=== PATIENT | female | born 1980 | race American Indian/Alaskan Native ===

== ENCOUNTER 2020-10-29 18:12 | Emergency (ER) | payer BC ==
--- NOTE | 2020-10-29 20:49 | Emergency Department Report ---
ED Headache HPI - General Chief Complaint: Headache Stated Complaint: FLUCTUATING BS/VOMITING/HEADACHE Time Seen by Provider: 10/29/20 20:28 Source: patient Exam Limitations: no limitations - History of Present Illness Initial Comments: 40-year-old female, history of diabetes, asthma, presents to the ED with complaint of headache. Patient states for the last 3 weeks, she has been having occasional mild headaches. Patient attributed these headaches to a recent increase in her diabetes medications, Ozempic and insulin. Patient states she has changed her diet over the last 3 weeks and blood glucose has been more controlled. Patient states last night, she went to a birthday democrat. States she only has a small amount to eat, however after eating a piece of birthday cake, 15 minutes later she had sudden onset of headache. Patient states headache is located on the right side and her right eye. She reports associated nausea and vomiting. She denies any dizziness, fever, neck pain, numbness or weakness. Patient states pain is worse with bright light. Patient denies any history of migraine headaches. Patient reports no relief with Excedrin Migraine medication. Timing/Duration: other (since 10 PM last night) Quality: severe Recent Head Trauma: occasional headaches Modifying Factors: worse with: exposure to light Associated Symptoms: nausea/vomiting. denies: facial pain, fever/chills, seizures, sinus infection, stiff neck, vision changes, weakness Home Medications: Ambulatory Orders Butalb/Acetamin/Caff 50-325-40 [Fioricet] 1 tab PO Q6HR PRN #10 tab 10/30/20 Naproxen [Naprosyn] 500 mg PO BID #20 tablet 10/30/20 ED Review of Systems ROS: Stated complaint: FLUCTUATING BS/VOMITING/HEADACHE Other details as noted in HPI Comment: All other systems reviewed and negative Constitutional: denies: chills, fever Gastrointestinal: nausea, vomiting Neurological: headache. denies: weakness, numbness, abnormal gait, vertigo ED Past Medical Hx - Past Medical History Hx Diabetes: Yes Hx Asthma: Yes - Surgical History Additional Surgical History: ovary removed - Social History Smoking Status: Never Smoker - Medications Home Medications: Home Medications Medication Instructions Recorded Confirmed Last Taken Type Butalb/Acetamin/Caff 50-325-40 1 tab PO Q6HR PRN #10 tab 10/30/20 Unknown Rx [Fioricet] Naproxen [Naprosyn] 500 mg PO BID #20 tablet 10/30/20 Unknown Rx ED Physical Exam - General Limitations: No Limitations General appearance: alert, other (appears uncomfortable) - Head Head exam: Present: atraumatic - Eye Eye exam: Present: normal appearance, PERRL, EOMI Pupils: Present: normal accommodation - ENT ENT exam: Present: mucous membranes moist - Neck Neck exam: Present: normal inspection, full ROM. Absent: meningismus - Respiratory Respiratory exam: Present: normal lung sounds bilaterally. Absent: respiratory distress - Cardiovascular Cardiovascular Exam: Present: normal rhythm, tachycardia - GI/Abdominal GI/Abdominal exam: Present: soft. Absent: distended, tenderness - Extremities Exam Extremities exam: Present: normal inspection - Neurological Exam Neurological exam: Present: alert, oriented X3, CN II-XII intact, normal gait, other (skieey-ef-ajey intact bilaterally). Absent: motor sensory deficit - Psychiatric Psychiatric exam: Present: normal affect, normal mood - Skin Skin exam: Present: warm, dry, intact, normal color ED Course Vital Signs 10/29/20 10/29/20 10/29/20 19:29 21:04 21:16 Temperature 98.8 F Pulse Rate 120 H 81 Respiratory 20 13 10 L Rate Blood Pressure 166/108 132/59 O2 Sat by Pulse 100 100 Oximetry 10/29/20 10/29/20 10/29/20 21:30 21:46 22:00 Temperature Pulse Rate 87 88 Respiratory 11 L 13 16 Rate Blood Pressure 125/57 123/84 123/84 O2 Sat by Pulse 100 100 100 Oximetry 10/29/20 10/29/20 10/29/20 22:16 22:30 22:38 Temperature Pulse Rate Respiratory 16 22 17 Rate Blood Pressure 125/78 128/92 128/92 O2 Sat by Pulse 100 100 99 Oximetry 10/29/20 10/29/20 10/29/20 22:46 23:00 23:16 Temperature Pulse Rate 85 91 H 87 Respiratory 16 15 20 Rate Blood Pressure 128/92 128/92 128/92 O2 Sat by Pulse 100 100 100 Oximetry 10/29/20 10/29/20 10/30/20 23:30 23:46 00:00 Temperature Pulse Rate 85 88 83 Respiratory 16 17 17 Rate Blood Pressure 128/92 128/92 128/92 O2 Sat by Pulse 100 99 100 Oximetry 10/30/20 10/30/20 10/30/20 00:16 00:30 00:46 Temperature Pulse Rate 85 83 86 Respiratory 18 17 21 Rate Blood Pressure 128/92 111/46 118/49 O2 Sat by Pulse 99 99 97 Oximetry 10/30/20 10/30/20 10/30/20 01:00 01:16 01:30 Temperature Pulse Rate 83 87 93 H Respiratory 19 16 19 Rate Blood Pressure 105/56 95/51 114/55 O2 Sat by Pulse 99 97 98 Oximetry 10/30/20 10/30/20 01:46 02:00 Temperature Pulse Rate 88 83 Respiratory 21 22 Rate Blood Pressure 117/50 104/62 O2 Sat by Pulse 99 100 Oximetry - Reevaluation(s) Reevaluation #1: 10/29/20 22:46 Pt states ALEXANDER has just about completely resolved. SPoke with pt regarding need to perform LP due to sudden nature of her ALEXANDER. Pt agrees. States her father of a heart attack and an aneurysm. When asked if it was a brain aneurysm or aneurysm in the chest or abdomen, pt states she is unsure. Reevaluation #2: 10/30/20 01:46 Pt sleeping comfortably. Easily aroused. Reports resolution of ALEXANDER. Feels comfortable for d/c home. - Lumbar Puncture Consent Obtained: written consent Time Out Performed: Yes Indication for Procedure: headache Patient Position: Sitting Upright/Leaning F Skin Prep: Povidone-Iodine 1% Local Anesthetic Used: Lidocaine 1% Amount of anesthesia used (mls): 3 Spinal Needle Gauge: 22G Interspace Used: L4-L5 Fluid Initially Obtained: clear Complications: none Patient Tolerated Procedure: well ED Medical Decision Making - Lab Data Result diagrams: 10/29/20 20:46 10/29/20 20:46 - Radiology Data Radiology results: report reviewed, image reviewed - Medical Decision Making 40-year-old female presents to ED with acute right-sided headache. CT head negative for any acute bleed. No neuro deficits on exam. Due to nature of onset of headache, I decided to perform an LP to rule out subarachnoid hemorrhage. LP results did not show evidence of SAH. Patient has 2 RBCs in tube 1 and 3 RBCs in tube 4. Also no evidence of infection. Patient was given IV fluids, Toradol, Reglan, and Benadryl. Patient reports resolution of her headache. Patient feels comfortable with discharge home. Will discharge with prescriptions. Outpatient follow-up with neurologist as advised. Return precautions given. - Differential Diagnosis Migraine headache, subarachnoid hemorrhage, ICH Critical care attestation.: If time is entered above; I have spent that time in minutes in the direct care of this critically ill patient, excluding procedure time. ED Disposition Clinical Impression: Acute headache Disposition: - TO HOME OR SELFCARE Is pt being admited?: No Condition: Stable Instructions: General Headache Without Cause, [id number] Prescriptions: Butalb/Acetamin/Caff 50-325-40 [Fioricet] 1 tab PO Q6HR PRN #10 tab PRN Reason: Headache Naproxen [Naprosyn] 500 mg PO BID #20 tablet Referrals: PRIMARY CARE, [Primary Care Provider] - 3-5 Days JAMES ORELLANA MD [Referring] - [facility] Time of Disposition: 01:46
[2020-10-29] MEDS ORDERED: diphenhydrAMINE 50 MG/ML VIAL IV ONE (21:06)
[2020-10-29] MEDS ORDERED: SODIUM CHLORIDE 0.9% 1000 ML 1,000 ML IV ONE (21:06)
[2020-10-29] MEDS ORDERED: METOCLOPRAMIDE 10 MG/2 ML INJ IV ONE (21:06)
[2020-10-29] MEDS ORDERED: KETOROLAC 30 MG/1 ML INJ IV ONE (21:06)
[2020-10-29 21:08] LABS: Basophils % (Auto) 0.6 % (0.0-1.8); Eosinophils # (Auto) 0.1 K/mm3 (0.0-0.4); Eosinophils % (Auto) 2.1 % (0.0-4.3); Mean Corpuscular HGB Conc 31 % (30-34); Monocytes # (Auto) 0.4 K/mm3 (0.0-0.8); Monocytes % (Auto) 6.9 % (0.0-7.3); Platelet Count 367 K/mm3 (140-440); Red Blood Count 5.24 M/mm3 (3.65-5.03); Red Cell Distribution Width 19.7 % (13.2-15.2)
[2020-10-29 21:10] LABS: Mean Corpuscular Volume 67 fl (79-97)
[2020-10-29 21:21] LABS: Alanine Aminotransferase 12 units/L (7-56); Albumin 3.5 g/dL (3.9-5); Blood Urea Nitrogen 11 mg/dL (7-17); Calcium 9.1 mg/dL (8.4-10.2); Hemolysis Index 3
[2020-10-29 21:22] LABS: BUN/Creatinine Ratio 18; Bilirubin,Direct < 0.2 mg/dL (0-0.2)
[2020-10-29 21:23] LABS: Partial Thromboplastin Time 27.3 Sec. (24.2-36.6)
--- NOTE | 2020-10-29 21:24 | Cat Scan Report ---
CT HEAD WITHOUT CONTRAST INDICATION / CLINICAL INFORMATION: headache. TECHNIQUE: All CT scans at this location are performed using CT dose reduction for ALARA by means of automated e xposure control. COMPARISON: None available. FINDINGS: HEMORRHAGE: None. EXTRA-AXIAL SPACES: Normal in size and morphology for the patient's age. VENTRICULAR SYSTEM: Normal in size and morphology for the patient's age. CEREBRAL PARENCHYMA: No significant abnormality. No acute territorial infarct. MIDLINE SHIFT OR HERNIATION: None. CEREBELLUM / BRAINSTEM: No significant abnormality. ORBITS: Normal as visualized. SOFT TISSUES of HEAD: No significant abnormality. CALVARIUM: No significant abnormality. PARANASAL SINUSES / MASTOID AIR CELLS: Normal as visualized. ADDITIONAL FINDINGS: None. IMPRESSION: 1. No acute intracranial abnormality. Signer Name: Wilfredo Varghese MD Signed: 10/29/2020 9:20 PM Workstation Name: [id number]
[2020-10-30 00:10] LABS: Glucose,CSF 84 mg/dL
[2020-10-30 01:14] LABS: Appearance,CSF Clear
[2020-10-30 01:21] LABS: Total Cells Counted 100 /mm3
[2020-10-30 01:28] LABS: Red Blood Cell,CSF 3 /mm3 (0-0); White Blood Cell,CSF 14 /mm3 (1-10)
[2020-10-30 01:29] LABS: Appearance,CSF Clear
[2020-10-30 01:29] LABS: Basophils CSF 0 %
[2020-10-30 01:39] LABS: Basophils CSF 0 %; Red Blood Cell,CSF 2 /mm3 (0-0); Total Cells Counted 94 /mm3; White Blood Cell,CSF 8 /mm3 (1-10)
[2020-10-30 02:23] VITALS: BP 104/62
== END 2020-10-30 02:15 | disposition home or self-care (01) ==
LOC: ED 18:12
DX: R51.9 Headache, unspecified (principal); E11.9 Type 2 diabetes mellitus without complications; J45.909 Unspecified asthma, uncomplicated; Z79.899 Other long term (current) drug therapy
CPT/HCPCS: 36415; 62270; 70450; 80048; 80076; 82947; 84160; 84703; 85025; 85610; 85730; 87116; 89051; 96361; 96374; 96375; 99284; J1200; J1885; J2765; J7030

== ENCOUNTER 2020-12-03 10:25 | Emergency (ER) | payer BC ==
[2020-12-03 10:44] VITALS: BP 131/84
[2020-12-03] MEDS ORDERED: SODIUM CHLORIDE 0.9% 1000 ML 1,000 ML IV ONE (10:47)
[2020-12-03] MEDS ORDERED: ONDANSETRON 4 MG/2 ML INJ IV ONE (10:48)
[2020-12-03] MEDS ORDERED: FAMOTIDINE 20 MG TAB PO ONE (10:48)
--- NOTE | 2020-12-03 10:49 | Emergency Department Report ---
ED Abdominal Pain HPI - General Chief Complaint: Nausea/Vomiting/Diarrhea Stated Complaint: CHEST PAIN, ABD PAIN, BACK PAIN, VOMITING Time Seen by Provider: 12/03/20 10:47 Source: patient Mode of arrival: Ambulatory Limitations: No Limitations - History of Present Illness Initial Comments: 40-year-old female with a past medical history of diabetes presents to the ER today with complaints of epigastric pain. Patient states that her pain started last night. She states that the pain radiates up into her left chest and into her back. She reports multiple episodes of nausea and vomiting since last night. She states that emesis was initially food but now is bilious. She denies any associated diarrhea or any other bowel changes. She states that the pain started after eating a [place] cheese steak last night. She reports history of known gallstones. She states she was diagnosed with gallstones about 2 years ago and she did follow-up with a surgeon but she did not have it removed because she states that at a time she does not have any issues. She denies any associated fever or chills. She denies any shortness of breath cough or wheezing. She denies any UTI or abnormal vaginal symptoms. Her last menstrual cycle was around October 31. She not currently on any control. MD Complaint: abdominal pain -: Gradual (yesterday ) - Related Data Previous Rx's Medication Instructions Recorded Last Taken Type Butalb/Acetamin/Caff 50-325-40 1 tab PO Q6HR PRN #10 tab 10/30/20 Unknown Rx [Fioricet] Naproxen [Naprosyn] 500 mg PO BID #20 tablet 10/30/20 Unknown Rx Famotidine [Pepcid] 20 mg PO BID #60 tablet 12/03/20 Unknown Rx HYDROcodone/APAP 5-325 [[place] 1 each PO Q4HR PRN #10 tablet 12/03/20 Unknown Rx 5/325] Ondansetron [Zofran Odt] 4 mg PO Q8HR PRN #15 tab.rapdis 12/03/20 Unknown Rx Allergies Allergy/AdvReac Type Severity Reaction Status Date / Time No Known Allergies Allergy Unverified 12/03/20 10:41 ED Review of Systems ROS: Stated complaint: CHEST PAIN, ABD PAIN, BACK PAIN, VOMITING Other details as noted in HPI Comment: All other systems reviewed and negative Eyes: denies: eye pain, eye discharge, vision change ENT: denies: ear pain, throat pain, dental pain, hearing loss, epistaxis, congestion Respiratory: denies: cough, shortness of breath, SOB with exertion, SOB at rest, stridor, wheezing Cardiovascular: chest pain. denies: palpitations, dyspnea on exertion, edema, syncope, paroxysmal nocturnal dyspnea Gastrointestinal: abdominal pain, nausea, vomiting Musculoskeletal: back pain. denies: joint swelling, arthralgia, myalgia Skin: denies: rash, lesions, change in color, change in hair/nails, pruritus Neurological: denies: headache, weakness, paresthesias Psychiatric: denies: anxiety, depression, auditory hallucinations, visual hallucinations, homicidal thoughts, suicidal thoughts Hematological/Lymphatic: denies: easy bleeding, easy bruising, swollen glands ED Past Medical Hx - Past Medical History Previous Medical History?: Yes Hx Diabetes: Yes Hx Asthma: Yes - Surgical History Past Surgical History?: Yes Additional Surgical History: ovary removed - Social History Smoking Status: Never Smoker Substance Use Type: Alcohol, Prescribed - Medications Home Medications: Home Medications Medication Instructions Recorded Confirmed Last Taken Type Butalb/Acetamin/Caff 50-325-40 1 tab PO Q6HR PRN #10 tab 10/30/20 Unknown Rx [Fioricet] Naproxen [Naprosyn] 500 mg PO BID #20 tablet 10/30/20 Unknown Rx Famotidine [Pepcid] 20 mg PO BID #60 tablet 12/03/20 Unknown Rx HYDROcodone/APAP 5-325 [[place] 1 each PO Q4HR PRN #10 tablet 12/03/20 Unknown Rx 5/325] Ondansetron [Zofran Odt] 4 mg PO Q8HR PRN #15 tab.rapdis 12/03/20 Unknown Rx ED Physical Exam - General Limitations: No Limitations General appearance: alert, in distress, obese - Head Head exam: Present: atraumatic, normocephalic, normal inspection - Eye Eye exam: Present: normal appearance, PERRL, EOMI Pupils: Present: normal accommodation - ENT ENT exam: Present: normal exam, mucous membranes moist - Neck Neck exam: Present: normal inspection, full ROM - Respiratory Respiratory exam: Present: normal lung sounds bilaterally. Absent: respiratory distress, wheezes, rales, rhonchi, stridor - Cardiovascular Cardiovascular Exam: Present: regular rate, normal rhythm, normal heart sounds - GI/Abdominal GI/Abdominal exam: Present: soft, tenderness (Moderate epigastric, mild upper quadrant with some mild guarding). Absent: rebound, rigid - Neurological Exam Neurological exam: Present: alert, oriented X3, CN II-XII intact, normal gait - Psychiatric Psychiatric exam: Present: normal affect, normal mood - Skin Skin exam: Present: intact ED Course Vital Signs 12/03/20 12/03/20 10:43 13:23 Temperature 99.0 F Pulse Rate 96 H Respiratory 20 20 Rate Blood Pressure 131/84 O2 Sat by Pulse 100 Oximetry ED Medical Decision Making - Lab Data Result diagrams: 12/03/20 11:41 12/03/20 11:41 - Radiology Data Radiology results: report reviewed Patient: LAUREN GOMEZ MR# : [id number] : 1980 Acct:[id number] Age/Sex: 40 / F ADM Date: 12/03/20 Loc: ED Attending Dr: Ordering Physician: LUKAS BLANKENSHIP Date of Service: 12/03/20 Procedure(s): XR chest routine 2V Accession Number(s): [id number] cc: LUKAS BLANKENSHIP Fluoro Time In Minutes: CHEST 2 VIEWS INDICATION / CLINICAL INFORMATION: Chest Pain/epigastric pain. COMPARISON: None available. FINDINGS: SUPPORT DEVICES: None. HEART / MEDIASTINUM: No significant abnormality. LUNGS / PLEURA: No significant pulmonary or pleural abnormality. No pneumothorax. ADDITIONAL FINDINGS: No significant additional findings. IMPRESSION: 1. No acute cardiopulmonary abnormality. Signer Name: Radha Varghese MD Signed: 12/03/2020 12:45 PM Workstation Name: [id number] Transcribed By: SS Dictated By: RADHA VARGHESE Electronically Authenticated By: RADHA VARGHESE Signed Date/Time: 12/03/20 124 DD/ 44 TD/TT: - Medical Decision Making Patient currently resting comfortable. Her pain has improved and she has not had any vomiting during stay after meds. She is nontoxic and not ill-appearing. Labs reviewed and shows elevated glucose of 212 otherwise unremarkable. Ultrasound shows cholelithiasis but otherwise no cholecystitis or any other acute abnormality. CT abdomen pelvis also shows cholecystitis but otherwise unremarkable. Discussed lab and CT results with patient. Recommend follow-up with a general surgeon to discuss having her gallbladder removed. Gallbladder eating plan given to her as part of her discharge instructions. She also be given medications for pain and nausea. Patient expressed understanding of instructions and agree with plan. Patient stable at time of discharge. Critical care attestation.: If time is entered above; I have spent that time in minutes in the direct care of this critically ill patient, excluding procedure time. ED Disposition Clinical Impression: Cholelithiasis, Atypical chest pain Disposition: - TO HOME OR SELFCARE Is pt being admited?: No Does the pt Need Aspirin: No Condition: Stable Instructions: Cholelithiasis, [id number], Nonspecific Chest Pain, Adult, Gallbladder Eating Plan Additional Instructions: Take the pepcid, the zofran and the norco as prescribed. It is important that you stay away from fried fatty greasy food and you can also follow the gallbladder eating plan on your discharge instructions. It is also important that you follow-up with the general surgeon for further evaluation and discussion about possible surgery for your gallbladder. Return to the ER if your symptoms changes or worsens in any way. Prescriptions: HYDROcodone/APAP 5-325 [[place] 5/325] 1 each PO Q4HR PRN #10 tablet PRN Reason: Pain Famotidine [Pepcid] 20 mg PO BID #60 tablet Ondansetron [Zofran Odt] 4 mg PO Q8HR PRN #15 tab.rapdis PRN Reason: nausea/vomiting [facility]Other[facility] - 3-5 Days ALISSA MINER MD [Staff Physician] - 3-5 Days Forms: Work/School Release Form(ED) Time of Disposition: 14:18
[2020-12-03 11:46] LABS: Bilirubin,Urine NEG (Negative); Blood,Urine NEG (Negative); Color,Urine Yellow (Yellow); Mucus,Urine FEW /HPF; Urobilinogen,Urine < 2.0 mg/dL (<2.0)
[2020-12-03 11:57] LABS: Basophils % (Auto) 0.3 % (0.0-1.8); Eosinophils # (Auto) 0.1 K/mm3 (0.0-0.4); Eosinophils % (Auto) 0.8 % (0.0-4.3); Hematocrit 34.6 % (30.3-42.9); Hemoglobin 11.3 gm/dl (10.1-14.3); Lymphocytes # (Auto) 1.5 K/mm3 (1.2-5.4); Lymphocytes % (Auto) 20.1 % (13.4-35.0); Mean Corpuscular HGB Conc 33 % (30-34); Monocytes # (Auto) 0.4 K/mm3 (0.0-0.8); Monocytes % (Auto) 5.4 % (0.0-7.3); Platelet Count 372 K/mm3 (140-440); Red Blood Count 5.33 M/mm3 (3.65-5.03); Red Cell Distribution Width 17.7 % (13.2-15.2)
[2020-12-03 12:09] LABS: Mean Corpuscular Volume 65 fl (79-97)
--- NOTE | 2020-12-03 12:18 | Ultrasound Report ---
ULTRASOUND ABDOMEN, LIMITED (RIGHT UPPER QUADRANT) INDICATION / CLINICAL INFORMATION: Epigastric pain. COMPARISON: None available. FINDINGS: PANCREAS: Visualized portion shows no significant abnormality. LIVER: No significant abnormality. GALLBLADDER: Multiple echogenic foci are seen within the gallbladder lumen. There is no gallbladder w all thickening or significant pericholecystic edema. BILE DUCTS: No significant abnormality. Common bile duct measures 4 mm. FREE FLUID: None. ADDITIONAL FINDINGS: None. IMPRESSION: 1. Uncomplicated cholelithiasis. Signer Name: Wilfredo Varghese MD Signed: 12/03/2020 12:14 PM Workstation Name: [id number]
[2020-12-03 12:30] LABS: Alanine Aminotransferase 10 units/L (7-56); Albumin 3.5 g/dL (3.9-5); Blood Urea Nitrogen 8 mg/dL (7-17); Calcium 9.3 mg/dL (8.4-10.2); Hemolysis Index 0
[2020-12-03] MEDS ORDERED: KETOROLAC 30 MG/1 ML INJ IV ONE (12:31)
[2020-12-03 12:38] LABS: BUN/Creatinine Ratio 16
--- NOTE | 2020-12-03 12:49 | XRay Report ---
CHEST 2 VIEWS INDICATION / CLINICAL INFORMATION: Chest Pain/epigastric pain. COMPARISON: None available. FINDINGS: SUPPORT DEVICES: None. HEART / MEDIASTINUM: No significant abnormality. LUNGS / PLEURA: No significant pulmonary or pleural abnormality. No pneumothorax. ADDITIONAL FINDINGS: No significant additional findings. IMPRESSION: 1. No acute cardiopulmonary abnormality. Signer Name: Wilfredo Varghese MD Signed: 12/03/2020 12:45 PM Workstation Name: [id number]
--- NOTE | 2020-12-03 14:13 | Cat Scan Report ---
CT ABDOMEN AND PELVIS WITH CONTRAST INDICATION / CLINICAL INFORMATION: Epigastric pain. TECHNIQUE: Axial CT images were obtained through the abdomen and pelvis following the administration of intraven ous contrast. All CT scans at this location are performed using CT dose reduction for ALARA by means of automated exposure control. COMPARISON: None available. FINDINGS: LOWER CHEST: No significant abnormality. LIVER: No significant abnormality. GALLBLADDER: Uncomplicated cholelithiasis. PANCREAS: No significant abnormality. SPLEEN: No significant abnormality. ADRENALS: No significant abnormality. KIDNEYS / URETERS: No significant abnormality. URINARY BLADDER: No significant abnormality. REPRODUCTIVE ORGANS: 2.3 cm involuting left ovarian cyst. STOMACH / SMALL BOWEL: No significant abnormality. COLON: No significant abnormality. APPENDIX: No significant abnormality. PERITONEUM: No free fluid. No free air. No fluid collection. LYMPH NODES: No significant adenopathy. AORTA / ARTERIES: No significant abnormality. IVC / VEINS: No significant abnormality. SKELETAL SYSTEM: No significant abnormality. ADDITIONAL FINDINGS: None. IMPRESSION: 1. No acute abdominopelvic abnormality. 2. Uncomplicated cholelithiasis. 3. 2.3 cm involuting left ovarian cyst. Signer Name: Wilfredo Varghese MD Signed: 12/03/2020 2:08 PM Workstation Name: [id number]
--- NOTE | 2020-12-05 10:28 | Electrocardiograph Report ---
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
== END 2020-12-03 14:56 | disposition home or self-care (01) ==
LOC: ED 10:25
DX: K80.20 Calculus of gallbladder without cholecystitis without obstruction (principal); R07.89 Other chest pain; E11.9 Type 2 diabetes mellitus without complications; J45.909 Unspecified asthma, uncomplicated; Z98.890 Other specified postprocedural states; Z79.899 Other long term (current) drug therapy
CPT/HCPCS: 36415; 71046; 74177; 76705; 80053; 81001; 83690; 83735; 84484; 84703; 85025; 93005; 96361; 96374; 96375; 99284; J1885; J2405; J7030; Q9967